=== PATIENT | female | born 1995 | race Two or more races ===

== ENCOUNTER 2024-12-08 05:29 | Inpatient (IN) | payer OTHER ==
[2024-12-08] VITALS (11 sets, daily range): BP systolic 100–130; BP diastolic 48–94
[~2024-12-08] VITALS: Ht 154.9 cm; Wt 75.3 kg
[2024-12-08] MEDS ORDERED: PRENATAL TABLE1 EAC4 (05:54)
[2024-12-08] MEDS ORDERED: RINGERS SOLUTION,LACTATED 1,000 ML IV SCH (06:00)
[2024-12-08 06:49] LABS: URINE APPEARANCE Cloudy; URINE BILIRRUBIN Small (NEGATIVE); URINE BLOOD Negative; URINE COLOR Dark Yellow; URINE GLUCOSE Negative (NEGATIVE); URINE LEUKOCYTE Moderate; URINE NITRATE Negative; URINE PROTEIN 30 (NEGATIVE)
[2024-12-08 06:53] LABS: URINE BACTERIA 7468.7 uL (0.0-1933); URINE EPITHELIAL CELLS 123.1 uL (0.0-38.8); URINE RBC 14.2 uL (0.0-20.8); URINE WBC 259.6 uL (0.0-23.2)
[2024-12-08 07:01] LABS: EOS # 0.02 (0.04-0.54); EOS % 0.4 % (0.7-7.0); HEMATOCRIT 31.3 % (34.1-44.9); LYMPH # 2.29 (1.18-3.74); LYMPH % 48.3 % (19.3-53.1); MEAN CORPUSCULAR HEMOGLOBIN 28.7 pg (25.6-32.2); MONO # 0.42 (0.24-0.82); MONO % 8.9 % (4.7-12.5); NEUT # 1.97 (1.56-6.13); NEUT % 41.6 % (34.0-71.1); PLATELET COUNT 331 K/uL (163-369); RED BLOOD COUNT 3.83 M/uL (3.93-5.22); RED CELL DISTRIBUTION WIDTH 13.4 % (11.6-14.4)
[2024-12-08 07:22] LABS: URINE CAST 0.29 uL (0.0-1.40); URINE KETONE 40 (NEGATIVE)
[2024-12-08 07:50] LABS: ALBUMIN 2.9 gm/dL (3.4-5.0); BILIRUBIN TOTAL 0.42 mg/dL (0.3-1.2); CALCIUM 8.5 mg/dL (8.5-10.1); CREATININE SERUM 0.56 mg/dL (0.55-1.02); GFR 129.86; GLOBULINA 3.7 G/DL (2.4-3.5); POTASSIUM 4.03 mEq/L (3.5-5.1); TOTAL PROTEIN 6.6 gm/dL (6.4-8.2)
[2024-12-08] MEDS ORDERED: OXYTOCIN 500 ML IV SCH (08:45)
[2024-12-08] MEDS ORDERED: CEFAZOLIN SODIUM 1,000 MG VIAL IV SCH ×3 (09:00→14:54)
[2024-12-08 09:02] LABS: INR 0.94; PARTIAL THROMBOPLASTIN TIME 25.4 SECONDS (22.0-34.0); PROTHROMBIN TIME 10.3 SECONDS (9.0-11.5)
[2024-12-08] MEDS ORDERED: MORPHINE SULFATE 4 MG/ML VIAL IV ONE (12:45)
[2024-12-08] MEDS ORDERED: MISOPROSTOL 25 MCG/4 ML GEL.W.APPL VAG NR (14:15)
[2024-12-08] MEDS ORDERED: CHLORHEXIDINE GLUCONATE 120 ML BOTTLE TOP ONE (15:45)
[2024-12-08] MEDS ORDERED: ERYTHROMYCIN BASE OPHT 1GM EACH TUBE OP ONE (15:45)
[2024-12-08] MEDS ORDERED: OXYTOCIN 20 UNITS/1000ML RL PIGGYBAG IV ONE ×2 (15:45→19:46)
[2024-12-08] MEDS ORDERED: LIDOCAINE HCL 1% 10ML VIAL ONE (15:46)
[2024-12-08] MEDS ORDERED: IBUprofen 600 MG TABLET PO SCH (20:00)
[2024-12-09 01:02] VITALS: BP 117/74
[2024-12-09 08:00] VITALS: BP 101/65
[2024-12-09 16:34] VITALS: BP 115/72
[2024-12-10 00:08] VITALS: BP 90/58
[2024-12-10 07:58] VITALS: BP 105/69
== END 2024-12-10 13:24 | disposition home or self-care (01) | DRG 807 ==
LOC: OB/GYN 05:29 → LDR 05:29 → OB/GYN 19:37
PROVIDERS: ADMIT Specialist; ATTEND Specialist
PROC: 10E0XZZ Delivery of Products of Conception, External Approach (ICD-10-PCS; principal; 2024-12-08)
PROC: 0W8NXZZ Division of Female Perineum, External Approach (ICD-10-PCS; 2024-12-08)
PROC: 4A1HXCZ Monitoring of Products of Conception, Cardiac Rate, External Approach (ICD-10-PCS; 2024-12-08)
DX: O80 Encounter for full-term uncomplicated delivery (principal); Z37.0 Single live birth; Z3A.39 39 weeks gestation of pregnancy